=== PATIENT | male | born 1970 | race American Indian/Alaskan Native ===

== ENCOUNTER 2020-08-06 09:26 | Emergency (ER) | payer OTHER ==
[~2020-08-06] VITALS: Ht 182.9 cm; Wt 77.1 kg
[2020-08-06] MEDS ORDERED: METHOTREXATE2.5 MG PO (09:44)
[2020-08-06] MEDS ORDERED: FOLIC ACID0.8 MG PO (09:45)
[2020-08-06] MEDS ORDERED: MULTI VITAMIN1 EACH PO (09:46)
== END 2020-08-06 10:13 | disposition home or self-care (01) ==
LOC: ED 09:26
DX: S61.211A Laceration without foreign body of left index finger without damage to nail, initial encounter (principal); W26.0XXA Contact with knife, initial encounter; F17.200 Nicotine dependence, unspecified, uncomplicated; Z79.899 Other long term (current) drug therapy
CPT/HCPCS: 12001; 99283

== ENCOUNTER 2022-12-14 23:14 | Emergency (ER) | payer BC, OTHER ==
[~2022-12-14] VITALS: Ht 182.9 cm; Wt 77.1 kg
[~2022-12-14 23:14] MED LIST: FOLIC ACID0.8 MG PO; METHOTREXATE2.5 MG PO; MULTI VITAMIN1 EACH PO
[2022-12-14] MEDS ORDERED: NAPROXEN500 MG PO (23:26)
[2022-12-14] MEDS ORDERED: NAPROSYN500 MG PO (23:31)
== END 2022-12-14 23:38 | disposition home or self-care (01) ==
LOC: ED 23:14
DX: Z76.0 Encounter for issue of repeat prescription (principal); M19.90 Unspecified osteoarthritis, unspecified site; F17.200 Nicotine dependence, unspecified, uncomplicated; Z79.899 Other long term (current) drug therapy
CPT/HCPCS: 99281